=== PATIENT | female | born 1980 | race Caucasian/White ===

== ENCOUNTER 2019-02-13 10:29 | Emergency (ER) | payer BC ==
--- OUTSIDE RECORDS SUMMARY | 2019-02-13 11:12 | XMS REPORT | Continuity of Care Document ---
:1980 External Reference #:[id number] Author Name Fabby Roque NP Address [address] [place] [address] Care Team Providers Name Role Phone Fabby Roque NP - Family Care Team Information [employer] [phone] Problems Description No Information Available Social History Type Date Description Comments Sex Unknown ETOH Use 01/11/2019 Drinks 5 Alcoholic Beverages Per Week Tobacco Use Start: Unknown Patient has never smoked Smoking Status Reviewed: 01/11/19 Patient has never smoked Exercise 01/11/2019 Exercises regularly Hiking/Biking/Running Type/Frequency at least 3x/week Allergies, Adverse Reactions, Alerts Description No Known Drug Allergies Medications Description No Active Medications Immunizations Description No Information Available Vital Signs Date Vital Result Comment 01/11/2019 2:12pm Weight 138.00 lb Heart Rate 66 /min BP Systolic 110 mmHg BP Diastolic 62 mmHg Height 65 inches 5'5" BMI (Body Mass Index) 23.0 kg/m2 09/09/2015 11:35am Body Temperature 97.7 F Weight 140.00 lb Heart Rate 64 /min BP Systolic 106 mmHg BP Diastolic 64 mmHg Results Description No Information Available Procedures Description No Information Available Medical Devices Description No Information Available Encounters Description No Information Available Assessments Date Code Description Provider 01/11/2019 Z00.00 Encounter for general adult medical examination Fabby Roque NP without abnormal findings 01/11/2019 R19.7 Diarrhea, unspecified Fabby Roque NP 01/11/2019 R11.0 Nausea Fabby Roque NP 01/11/2019 Z13.31 Encounter for screening for depression Fabby Roque NP 01/11/2019 Z13.220 Encounter for screening for lipoid disorders Fabby Roque NP 01/11/2019 Z13.228 Encounter for screening for other metabolic Fabby Roque NP disorders 01/11/2019 B00.9 Herpesviral infection, unspecified Fabby Roque NP Plan of Treatment Future Appointment(s):01/14/2020 9:00 am - Fabby Roque MANAGER OF INTERNATIONAL at [facility]01/17/2019 9:35 am - Schedule, Laboratory at [facility]01/11/2019 - Fabby Roque NPZ00.00 Encounter for general adult medical examination without abnormal findingsComments:Generally healthy 38 yoa female. Discussed risk prevention, safety and avoidance of social excesses.[facility] and previous PCPRecommend continue healthy diet and routine exercise. Recommend annual flu vaccine.Last Tdap unknown. Does not want to have todayPap due 2021.Will start breast cancer screening at age 40.Will start colon cancer screening at age 50.R19.7 Diarrhea, unspecifiedNew Labs:CBC with Auto Diff-fcmg, Scheduled: 01/17/19Comprehensive Met Panel-FCMG, Scheduled: 01/17/19Urine Microscopic-Only, Scheduled: 01/17/19Stool Panel, Scheduled: 01/16/19Comments:Maintain adequate fluid intake.Solids as tolerated.Labs including stool panel today. Will notify of lab results. To ER for severe diarrhea and inability to tolerate fluids.Follow up:-To be determined.R11.0 NauseaComments:Beaver dietginger or peppermint containing food may be helpfulOffered antiemetics, does not want at this time.Z13.31 Encounter for screening for depressionComments:Up to 15 min spent on depression screening. Staff-assisted depression care supports are in place toassure accurate diagnosis, effective treatment and follow-up as needed. Patient screened negative for depression at today's visit.Z13.220 Encounter for screening for lipoid disordersNew Labs:Lipid, Scheduled: 01/17/19Comments:- Lipid panel ordered. Not fasting now. Will schedule at her convenience. Follow- up for results and any changes in care plan as indicated via [id number] Encounter for screening for other metabolic disordersNew Labs:TSH, Scheduled: Free T4, Scheduled: 01/17/19Comments:-TSH and FreeT4 today, follow-up for results and any changes in care plan as indicated via fmvgzD56.9 Herpesviral infection, unspecifiedComments:Manages HSV2 with herbal supplementation tx. No outbreaks following initial in 06/2018. Functional Status Description No Information Available Mental Status Description No Information Available Referrals Description No Information Available
--- OUTSIDE RECORDS SUMMARY | 2019-02-13 11:12 | XMS REPORT | Continuity of Care Document ---
:1980 Author Organization [facility] Address [address] [place] [address] Phone Care Team Providers Name Role Phone Zarina Knowles NP Unavailable Unavailable Allergies, Adverse Reactions, Alerts Substance Reaction Status No Known Allergies Active Medications Medication Instructions Dosage Effective Dates (start - stop) Status Comments No Drug Therapy Prescribed Problems Condition Effective Dates (start - Clinical Status Comments stop) Encounter for prescription of emergency contraception Encounter for oth general cnsl and advice on contraception Herpesviral infection of urogenital system, unspecified Candidiasis of vulva and vagina Constipation, unspecified Human immunodeficiency virus [HIV] - counseling Encntr screen for infections w sexl mode of transmiss Ulceration of vulva Encounter for oth general cnsl and advice on contraception Encounter for screening for human - immunodeficiency virus Procedures Procedure Date OFFICE/OUTPATIENT VISIT, EST E-Contra EZ Emergency Contraceptive BLOOD PRESSURE Height/Weight OTHER Medical Services Contraceptive Economic Developer.Svc. Other Economic Developer.Svc. STI Results Test Name Date and Time Measure Units Reference Range Abnormal Flag Status Comments No information Advance Directives Directive Yes / No Effective Date File Name No information Encounters Encounter Practice Location Reason(s) Diagnoses Date Provider Providers Description For Visit Copied on Encounter OFFICE/OUTPA [facility] IUC Encounter for Sep- White Referring TIENT VISIT, [facility] Insertion prescription of 5-201 [address]. Provider: MARLIN Hernandez (chief emergency [address] complaint) contraception[address]oun [place], [address] cnsl and advice on [place], St, St, [place], contraception [place], [place], [address], [place], [address]. [id number], [place]. [place] tel:[phone] [facility] Herpesviral Feb-1 Praneeth Referring [facility] [place] infection of [address]. Provider: Mary urogenital system, [address] unspecifiedCandidia Malcom Rizvi, [place], [address], [address] [place] vaginaConstipation, [place], [place] [address], St, [place], unspecified [place], [place], [address], [place], [address]. [id number], [place]. tel:+ [place] tel:+ [phone] tel:[phone] [facility] Human Feb-0 Praneeth Referring [facility] [place] immunodeficiency [address]. Provider: [facility] virus [HIV] [address] counselingEncntr Malcom Rizvi, [place], [address], [address] [place] infections w sexl [place], [place] [address], St, [place], mode of [place], [place], [place], transmissUlcer[place] [address], [place], [address]. [id number], of vulvaEncounter [place]. tel:+[phone] [place] for oth general tel:+ [phone] tel:[phone] cnsl and advice on [phone] contraception[address] for screening for human immunodeficiency virus Family History Family Member Diagnosis Age At Onset No information Immunizations Vaccine Date Status Comments No information Payers Payer name Insurance type Covered green party ID Authorization(s) [facility] [id number] Social History Type Description Quantity Date Captured Comments Alcohol Use Details Unknown Caffeine Use Details Unknown Tobacco Use Status Current non-smoker Smoking Status Never smoker Non-Smoking Tobacco : No Details Available : No Details Available 2018 Use Details Sex Female Vital Signs Date / Height Weight BMI Pulse Blood Temperature Respiratory Body Head BMI Pulse Inhaled Time: Rate Pressure Rate Surface Circumference percentile Ox Ox Area 67.00 136.00 21.3 110/82 -2019 in lbs 0 mm[Hg] 12:11 kg/m PM eter (2) Chief Complaint And Reason For Visit Most recent encounter only, dated '02/07/2019 12:10'. IUC Insertion ( chief complaint) Reason For Referral Reason For Referral No information Plan Of Treatment Date Type Action Status No information History Of Present Illness Encounter Date Complaint History Of Present Illness No information Functional Status Date Functional Assessment No information Medications Administered Medication Instructions Dosage Effective Dates (start - stop) Status Comments No Drug Therapy Prescribed Instructions Date Instruction Additional Information No information Assessments Type Assessment Date assessment Encounter for prescription of emergency contraception assessment Encounter for oth general cnsl and advice on contraception 2018 Goals Health Concern Goal Type Priority Status Date No information Medical Equipment Description Device [place] Device Identifier Effective Dates (start - stop ) Status No information Mental Status Date Cognitive Assessment No information Health Concerns Observation Date No information Concern Status Date No information
[2019-02-13 11:35] VITALS: BP 114/69
--- NOTE | 2019-02-13 11:47 | UC ---
Complaint Female HPI - HPI Summary HPI Summary: dysuria x 1 day + frequency , urgency no fever, no chills, no flank pain - History Of Current Complaint Chief Complaint: UCGU Stated Complaint: URINARY Time Seen by Provider: 02/13/19 11:43 Hx Obtained From: Patient Hx Last Menstrual Period: 01/2019 ?: No Onset/Duration: Gradual Onset, Lasting Days - 2, Still Present Timing: Constant Severity Initially: Moderate Severity Currently: Moderate Pain Intensity: 8 Character: Burning Aggravating Factor(s): Urination Associated Signs And Symptoms: Negative: Fever, Back Pain, Vaginal Bleeding/ Discharge, Vaginal Discharge, Nausea, Vomiting(# Of Episodes =), Genital Swelling, Genital Blisters, Retained Foregin Body (Specify) - Allergies/Home Medications Allergies/Adverse Reactions: Allergies Allergy/AdvReac Type Severity Reaction Status Date / Time No Known Allergies Allergy Verified 02/13/19 11:30 Home Medications: Home Medications Pumpkin Seed Extract/Soy Germ [Azo Bladder Control/Go-Le] 1 cap PO ONCE [History Confirmed 02/13/19] PMH/Surg Hx/FS Hx/Imm Hx Previously Healthy: Yes - Surgical History Surgical History: None - Family History Known Family History: Negative: Diabetes - Social History Alcohol Use: Occasionally Substance Use Type: None Smoking Status (MU): Never Smoked Tobacco Review of Systems All Other Systems Reviewed And Are Negative: Yes Constitutional: Positive: Negative Skin: Positive: Negative Eyes: Positive: Negative ENT: Positive: Negative Genitourinary: Positive: Dysuria, Frequency, Urgency Is Patient Immunocompromised?: No Physical Exam Triage Information Reviewed: Yes Appearance: Well-Appearing, No Pain Distress, Well-Nourished Vital Signs: Initial Vital Signs Temp 98.3 F 02/13/19 11:31 Pulse 59 02/13/19 11:31 Resp 14 02/13/19 11:31 BP 114/69 02/13/19 11:31 Pulse Ox 100 02/13/19 11:31 Vital Signs Reviewed: Yes Eye Exam: Normal Eyes: Positive: Conjunctiva Clear ENT: Positive: Normal ENT inspection, Hearing grossly normal, Pharynx normal Neck: Positive: Supple, Nontender, No Lymphadenopathy Respiratory: Positive: Chest non-tender, Lungs clear, Normal breath sounds Cardiovascular: Positive: RRR, No Murmur, Pulses Normal Abdomen Description: Positive: Nontender, Soft. Negative: CVA Tenderness (R), CVA Tenderness (L), Distended, Guarding Skin Exam: Normal Procedures - Sedation Patient Received Moderate/Deep Sedation with Procedure: No Complaint Female Dx - Differential Dx/Diagnosis Provider Diagnosis: UTI (urinary tract infection) Discharge ED - Sign-Out/Discharge Documenting (check all that apply): Patient Departure All imaging exams completed and their final reports reviewed: No Studies - Discharge Plan Condition: Stable Disposition: HOME Prescriptions: Sulfamethox/Trimethoprim DS* [Bactrim DS 800/160 TAB*] 1 tab PO BID #14 tab Patient Education Materials: Urinary Tract Infection in Women (ED) Referrals: No Primary Care Phys,NOPCP [Primary Care Provider] - If Needed - Billing Disposition and Condition Condition: STABLE Disposition: Home
== END 2019-02-13 11:54 | disposition home or self-care (01) ==
LOC: UCCORT 10:29
DX: N39.0 Urinary tract infection, site not specified (principal)
CPT/HCPCS: 87077; 87086; 99202; G0463